=== PATIENT | female | born 1980 | race Caucasian/White ===

== ENCOUNTER 2021-02-11 05:19 | Emergency (ER) | payer OTHER ==
[~2021-02-11 05:19] MED LIST: BUPROPION XL300 MG PO; FLEXERIL10 MG PO; PREDNISONE 20MG20 MG PO; PREMARIN0.625 MG PO; RESTASIS1 EACH EYEBOTH
[2021-02-11 06:00] LABS: BASOPHIL 0.6 % (0-2); BILIRUBIN NEGATIVE (NEGATIVE); BLOOD TRACE-INTACT Ery/uL (NEGATIVE); CLARITY CLEAR (CLEAR); COLOR YELLOW (YELLOW); EOSINOPHIL 2.4 % (0-5); GLUCOSE (U) NORMAL (NORMAL); HCT 38.3 % (37.0-47.0); HGB 12.4 g/dl (12.5-16.0); LEUKOCYTES TRACE Leu/uL (NEGATIVE); LYMPHOCYTE 38.9 % (15-48); MCH 31.2 pg (25.0-31.0); MCHC 32.4 g/dL (32.0-36.0); MCV 96.5 fL (78.0-100.0); MONOCYTE 8.9 % (0-12); MPV 11.1 fL (6.0-9.5); NITRITE NEGATIVE (NEGATIVE); NRBC 0; PLT 233 K/uL (150-400); PROTEIN NEGATIVE (NEGATIVE); RBC 3.97 M/uL (4.20-5.40); RDW 13.6 % (11.5-14.0); UROBILINOGEN 0.2 mg/dL (0.2-1.0); WBC 5.4 K/uL (4.0-10.5)
[2021-02-11 06:13] LABS: BACTERIA TRACE
[2021-02-11 06:24] LABS: ALBUMIN 3.7 g/dL (3.4-5.0); BILIRUBIN - TOTAL 0.3 mg/dL (0.2-1.0); BUN/CREAT RATIO (CALC) 30.1 RATIO; CREATININE 0.83 mg/dL (0.51-0.95); GLOBULIN (CALCULATION) 3.1 g/dL; POTASSIUM 4.2 mmol/L (3.5-5.1); TOTAL PROTEIN 6.8 g/dL (6.4-8.2)
[2021-02-11] MEDS ORDERED: ROBAXIN750 MG PO (06:51)
[2021-02-11] MEDS ORDERED: PREDNISONE20 MG PO (06:51)
== END 2021-02-11 07:10 | disposition home or self-care (01) ==
LOC: FER 05:19
PROVIDERS: Emergency Medicine
DX: M54.5 Low back pain (principal); Z88.5 Allergy status to narcotic agent; Z88.0 Allergy status to penicillin
CPT/HCPCS: 36415; 80053; 81001; 84145; 85025; 87088

== ENCOUNTER 2021-04-21 09:06 | Emergency (ER) | payer OTHER ==
[~2021-04-21 09:06] MED LIST changes: +PREDNISONE20 MG PO; +ROBAXIN750 MG PO
[2021-04-21 10:07] LABS: BILIRUBIN NEGATIVE (NEGATIVE); BLOOD 1+ Ery/uL (NEGATIVE); CLARITY CLEAR (CLEAR); COLOR YELLOW (YELLOW); GLUCOSE (U) NORMAL (NORMAL); LEUKOCYTES 2+ Leu/uL (NEGATIVE); NITRITE NEGATIVE (NEGATIVE); PROTEIN NEGATIVE (NEGATIVE); SPECIFIC GRAVITY >=1.030 (1.001-1.030); UROBILINOGEN 0.2 mg/dL (0.2-1.0)
[2021-04-21 10:16] LABS: BASOPHIL 0.4 % (0-2); EOSINOPHIL 1.9 % (0-5); HCT 44.2 % (37.0-47.0); HGB 14.1 g/dl (12.5-16.0); LYMPHOCYTE 33.1 % (15-48); MCH 30.7 pg (25.0-31.0); MCHC 31.9 g/dL (32.0-36.0); MCV 96.1 fL (78.0-100.0); MONOCYTE 9.6 % (0-12); MPV 11.4 fL (6.0-9.5); NEUTROPHIL 54.8 % (41-80); NRBC 0; PLT 215 K/uL (150-400); RDW 13.2 % (11.5-14.0); WBC 4.8 K/uL (4.0-10.5)
[2021-04-21 10:18] LABS: BACTERIA 1+
[2021-04-21 10:44] LABS: ALBUMIN 4.2 g/dL (3.4-5.0); BILIRUBIN - TOTAL 0.5 mg/dL (0.2-1.0); CREATININE 0.77 mg/dL (0.51-0.95); GLOBULIN (CALCULATION) 3.3 g/dL; POTASSIUM 4.4 mmol/L (3.5-5.1); TOTAL PROTEIN 7.5 g/dL (6.4-8.2)
[2021-04-21 12:20] LABS: CORONAVIRUS 2019 SARS-COV-2 NEGATIVE (NEGATIVE); INFLUENZA A NAA NEGATIVE (NEGATIVE)
[2021-04-21] MEDS ORDERED: BACTRIM DS TAB1 EACH PO (13:02)
[2021-04-21] MEDS ORDERED: ONDANSETRON ODT4 MG PO (13:02)
== END 2021-04-21 13:20 | disposition home or self-care (01) ==
LOC: FER 09:06
PROVIDERS: Internal Medicine
DX: N39.0 Urinary tract infection, site not specified (principal); J06.9 Acute upper respiratory infection, unspecified; R91.1 Solitary pulmonary nodule; Z90.49 Acquired absence of other specified parts of digestive tract; Z20.822 Contact with and (suspected) exposure to COVID-19
CPT/HCPCS: 36415; 71250; 80053; 81001; 85025; J0696; J2405; J7030; U0002